=== PATIENT | male | born 1945 | race Caucasian/White ===

== ENCOUNTER 2018-04-21 07:38 | Day surgery (SDC) | payer OTHER, BC, MEDICARE ==
[2018-04-17 22:15] VITALS: BMI 38.7
[2018-04-21] MEDS ORDERED: Lidocaine PF 2% (5 ml) Inj (For Cardiac Arrhy) ONE (08:46)
[2018-04-21] MEDS ORDERED: Iodixanol 320 MG/ML 200 ML BOTTLE IV ONE (08:46)
[2018-04-21] MEDS ORDERED: Midazolam 2 MG/2 ML VIAL ONE ×2 (09:11→10:15)
--- NOTE | 2018-04-21 11:19 | CP.PCM.CON ---
<Sabino Nolasco - Last Filed: 04/21/18 13:48> History of Present Illness - History of Present Illness History of Present Illness: Sabino Nolasco DO, PGY-1 ICU Consult Note for Dr. Sruthi Saeed Patient is a 73 year old male with PMH of CAD (s/p CABG in 2005 and multiple stents), DM2, HTN, and HLD who presented to [facility] ED with chest pain on 04/17/18. At the time, he was recovering from a flu-like illness with a non- productive cough. He went to [facility] ED for concerns of pnemonia. He was found to have troponin of 0.6 initially which steadily reta to 5.5. He was transferred to [facility] for PCI this morning. His main complaint currently is back pain from lying on the table after PCI. He still has a non-productive cough with intermittent SOB but states it is improving. He denies fever/chills, CP, peripheral swelling/pain. PMH: CAD (s/p CABG in 2005, multiple stents), DM2, HTN, HLD PSH: CABG, PCI All: warfarin Fam Hx: all 4 brothers and father have CAD Soc Hx: denies tobacco, alcohol, or drug use. Review of Systems - Review of Systems All systems: reviewed and no additional remarkable complaints except Review of Systems: back pain - Constitutional Constitutional: absent: Chills, Fever - EENT Eyes: absent: Blurred Vision, Change in Vision Ears: absent: Disequilibrium, Dizziness Nose/Mouth/Throat: Nasal Congestion, Nasal Discharge. absent: Sinus Pain, Sinus Pressure - Cardiovascular Cardiovascular: absent: Chest Pain, Dyspnea - Respiratory Respiratory: Cough. absent: Dyspnea on Exertion, Wheezing - Gastrointestinal Gastrointestinal: absent: Abdominal Pain, Nausea, Vomiting - Genitourinary Genitourinary: absent: Change in Urinary Stream, Dysuria - Musculoskeletal Musculoskeletal: absent: Muscle Cramps, Numbness - Integumentary Integumentary: absent: Rash - Neurological Neurological: absent: Confusion, Numbness, Syncope - Psychiatric Psychiatric: absent: Confusion Past Patient History - Infectious Disease Hx of Infectious Diseases: None - Tetanus Immunizations Tetanus Immunization: Unknown - Past Medical History & Family History Past Medical History?: Yes - Past Social History Smoking Status: Former Smoker - CARDIAC Hx Hypercholesterolemia: Yes Hx Hypertension: Yes Hx Peripheral Edema: Yes - PULMONARY Hx Respiratory Disorders: No - NEUROLOGICAL Hx Neurological Disorder: No - HEENT Hx HEENT Problems: No - RENAL Hx Chronic Kidney Disease: No - ENDOCRINE/METABOLIC Hx Endocrine Disorders: Yes Hx Diabetes Mellitus Type 2: Yes - HEMATOLOGICAL/ONCOLOGICAL Hx Blood Disorders: No - INTEGUMENTARY Hx Dermatological Problems: No - MUSCULOSKELETAL/RHEUMATOLOGICAL Hx Musculoskeletal Disorders: Yes Hx Gout: Yes - GASTROINTESTINAL Hx Gastrointestinal Disorders: No - GENITOURINARY/GYNECOLOGICAL Hx Genitourinary Disorders: No - PSYCHIATRIC Hx Substance Use: No - SURGICAL HISTORY Hx Coronary Artery Bypass Graft: Yes (quadruple bypass 2005) Hx Coronary Stent: Yes - ANESTHESIA Hx Anesthesia: No Meds Allergies/Adverse Reactions: Allergies Allergy/AdvReac Type Severity Reaction Status Date / Time warfarin sodium AdvReac DIZZINESS Verified 08/28/15 17:55 [From Coumadin] Coum Allergy Unknown confusion Uncoded 08/28/15 17:55 Physical Exam - Constitutional Appears: Non-toxic, No Acute Distress - Head Exam Head Exam: ATRAUMATIC, NORMAL INSPECTION - Eye Exam Eye Exam: EOMI, Normal appearance - ENT Exam ENT Exam: Mucous Membranes Moist - Neck Exam Neck exam: Positive for: Full Rom, Normal Inspection - Respiratory Exam Respiratory Exam: Clear to Auscultation Bilateral, NORMAL BREATHING PATTERN. absent: Accessory Muscle Use, Rales, Rhonchi, Wheezes, Respiratory Distress - Cardiovascular Exam Cardiovascular Exam: REGULAR RHYTHM, RRR, +S1, +S2. absent: Gallop, JVD, Rubs, Systolic Murmur - GI/Abdominal Exam GI & Abdominal Exam: Normal Bowel Sounds. absent: Firm, Guarding, Rebound - Extremities Exam Extremities exam: Positive for: full ROM, normal capillary refill, normal inspection. Negative for: calf tenderness, pedal edema - Neurological Exam Neurological exam: Alert, Oriented x3 - Psychiatric Exam Psychiatric exam: Normal Affect, Normal Mood - Skin Skin Exam: Dry, Intact, Normal Color, Warm Assessment & Plan - Assessment and Plan (Free Text) Assessment: 73 M admitted to ICU for monitoring s/p PCI for elevated troponin and presumed NSTEMI. Plan: Neuro: A/o x 3 Continue to monitor Reorient as necessary Cardio: S/p PCI this AM Restart ASA, plavix, lopressor, crestor Holding ARB and fluids per nephrology recs Serial chem Pulm: With persistent cough and intermittent SOB Likely 2/2 recent viral illness vs acute bronchitis CTA bilaterally without rales, rhonchi, or wheezes CXR on 04/17/18 with vascular congestion Has hx of CHF Will repeat CXR /Nephro: Has already voided 700 s/p PCI Continue strict I & O Hold ARB per nephro Hold IVF BUN/Cr rising Likely TIRSHA 2/2 recent NSTEMI vs dehydration vs underlying CKD Will give 500 mL NS at 100 cc/hr over 5 hours Endocrine: Start ISS Fingerstick glucose ACHS Heme: H/H stable Leukocytosis likely 2/2 recent viral illness vs inflammatory response Continue to monitor GI/DVT Prophylaxis: Protonix and SC heparin Case and plan reviewed and discussed with my attending Dr. Sruthi Nolasco, IM Resident PGY-1 <Beena Saeed - Last Filed: 04/21/18 17:16> Results - Vital Signs Recent Vital Signs: Last Vital Signs Temp 98.3 F 04/21/18 10:15 Pulse 59 L 04/21/18 13:40 Resp 18 04/21/18 13:40 BP 144/68 04/21/18 13:30 Pulse Ox 95 04/21/18 13:40 Addendum Addendum: 04/21/18 17:15 ICU Attending Addendum: Patient seen and examined. Case reviewed on round with housestaff. Agree with resident note above with the following additions/exceptions: 73 M admitted to ICU for monitoring s/p PCI extensive cardiac hx including CABG / several stents / in stent thrombosis Will follow cardiology recs post cath will monitor in ICU post procedure transfer when acceptable by cards rest of care above Beena Saeed MD [employer]
[2018-04-21 13:27] VITALS: TEMP 98.3
[2018-04-21] MEDS ORDERED: Sodium Chloride 0.9% 500 ML IV SCH (13:45)
[2018-04-21 14:09] VITALS: BP 144/68; PULSE 59; RESP 18; O2SAT 95
[2018-04-21] MEDS ORDERED: Insulin Reg-HIGH-Coverage SC SCH (16:30)
[2018-04-22] MEDS ORDERED: Pantoprazole 40 mg EC Tab PO SCH (06:00)
--- NOTE | 2018-04-22 08:34 | CARDCATH ---
PROCEDURE DATE: 04/21/2018 CARDIAC CATHETERIZATION REPORT BRIEF CLINICAL HISTORY: This is a patient, who is a 73-year-old male with history of hypertension, coronary artery disease, diabetes, LV systolic dysfunction, recently admitted at the [facility] with NSTEMI. After discussion with the patient, the patient was transferred to [facility] for cardiac cath with possible intervention. PROCEDURE TECHNIQUE: After obtaining the consent, the patient was prepared for the procedure. Right groin was used for access and after obtaining the access, a 6-Tunisian sheath was introduced in the right femoral artery and access was completed without any complication. A 6-Tunisian JL4 catheter was used to visualize the left coronary artery system. A 6-Tunisian JR4 catheter was used to visualize the right coronary artery system and the graft. A 6-Tunisian URRUTIA catheter was used to access and visualize the URRUTIA to LAD graft. The patient has distal 90% left main with 100% LAD and 100% circumflex. RCA is 100%. SVG to OM jump graft was patent, moderate and diffuse in the proximal and mid segment of the graft. URRUTIA to LAD is patent. LV diastolic pressure is mildly elevated. CONCLUSION: Multivessel [place] disease with 100% left anterior descending, circumflex and right coronary artery jump graft to obtuse marginal 1 and obtuse marginal 2 is patent. Left internal mammary artery to left anterior descending patent. Saphenous vein graft jump graft had diffuse disease. PLAN: Given the all the comorbidities and risk factors, we will recommend to maximize the medical therapy. The patient could be continued on DAPT indefinitely. Modify sugar control and blood pressure. Maximize CHF therapy. Shira Quinteros MD
== END 2018-04-21 15:49 | disposition short-term general hospital (02) ==
LOC: CATH 07:38 → ICU 10:39 → CATH 15:49
PROVIDERS: ATTEND Internal Medicine
DX: I21.4 Non-ST elevation (NSTEMI) myocardial infarction (principal); I25.119 Atherosclerotic heart disease of native coronary artery with unspecified angina pectoris; I25.719 Atherosclerosis of autologous vein coronary artery bypass graft(s) with unspecified angina pectoris; I11.0 Hypertensive heart disease with heart failure; I50.9 Heart failure, unspecified; E11.9 Type 2 diabetes mellitus without complications; E78.5 Hyperlipidemia, unspecified; Z79.4 Long term (current) use of insulin
CPT/HCPCS: 93455; 99152; 99153; C1725; C1760; C1769; C1894; C2629; J1644; J1940; J2250; J3010; J7040 ×2; Q9966